=== PATIENT | male | born 1960 | race Caucasian/White ===

== ENCOUNTER 2017-06-02 13:36 | Day surgery (SDC) | payer BC ==
[~2017-06-02] VITALS: Ht 177.8 cm; Wt 90.7 kg
--- NOTE | ~2017-06-02 | OP ---
Record Of Operation [facility] [address] [place]. [address] NAME: JOSE RAYGOZA : 58 STATUS : REG [facility] PAT#: [id number] AGE: 56 ADM/REG DATE : 06/02/17 MR#: [id number] REPORT SERV DATE: 06/02/17 DICTATED BY: GEORGETTE HERNANDEZ DATE: 06/02/17 REPORT STATUS : Draft TRANSCRIBED BY: SHEBA DATE: 06/02/17 DATE OF PROCEDURE: 06/02/2017 PREOPERATIVE DIAGNOSIS: Left carpal tunnel syndrome. POSTOPERATIVE DIAGNOSIS: Left carpal tunnel syndrome. PROCEDURE: Left carpal tunnel release under local wrist block anesthetic. ASSIST: YESI Hidalgo. INDICATION: 56-year-old with longstanding pain, numbness, and tingling in median distribution with positive nerve conduction study for significant carpal tunnel syndrome, which has been unrelieved by nonoperative measures. DESCRIPTION OF PROCEDURE: After satisfactory induction of local wrist block anesthetic by hi with lidocaine with epinephrine, then left upper extremity was scrubbed, prepped, and draped in normal sterile fashion. A time-out was performed per protocol, and then a longitudinal incision was made in the proximal palm in line with the ring finger. Dissection was carried down through the subcutaneous tissue and bleeding points were controlled with electrocautery. Palmar fascia was opened sharply exposing the transverse carpal ligament, which was then longitudinally incised along its ulnar aspect close to the hook of the hamate. Ligament was released proximally and distally including the distal aspect of the antebrachial fascia. This completely decompressed the median nerve, which was examined and it showed moderate signs of chronic compression and a limited epineurotomy was performed. The wound was irrigated with local anesthetic and corticosteroid instilled, and the skin was closed with 5-0 Prolene. Xeroform and a bulky dressing was applied and he tolerated the procedure well. DISCHARGE INSTRUCTIONS: He was instructed on dressing care and elevation and given a return appointment in about two weeks, and he was prescribed hydrocodone preparation for pain. MCKAYLA/SHEBA Georgette Hernandez M.D. / [id number] CC: Xena Preciado M.D.
[~2017-06-02 13:36] MED LIST: ADVIL PO; AMARYL1 MG PO; B12100T PO; COREG25 PO; CYMBALTA60 PO; FLOMAX4 PO; IMDUR30 PO; INDE80; LIPITOR40 PO; PLAQ200B PO; PROSCAR5 PO; UROXATRAL PO; VITAMIN E; ZANTAC150 MG PO
== END 2017-06-02 23:59 | disposition home or self-care (01) ==
LOC: MSC 13:36
PROVIDERS: Orthopaedic Surgery Hand Surgery
PROC: 01N50ZZ Release Median Nerve, Open Approach (ICD-10-PCS; principal; 2017-06-02 15:00)
DX: G56.02 Carpal tunnel syndrome, left upper limb (principal); Z90.49 Acquired absence of other specified parts of digestive tract; Z98.890 Other specified postprocedural states